=== PATIENT | female | born 1990 | race African-American/Black ===

== ENCOUNTER 2017-11-06 19:22 | Emergency (ER) | payer MEDICAID ==
[~2017-11-06] VITALS: Ht 149.9 cm; Wt 59.5 kg
[2017-11-07 00:01] LABS: HEMATOCRIT. 38.8 % (36.0-48.0); HEMOGLOBIN. 12.6 g/dL (12.0-16.0); LYMPHOCYTES % 30.7 % (20.0-50.0); MEAN CORPUSCULAR VOLUME 89.2 fL (81.0-99.0); MEAN PLATELET VOLUME 7.8 fl (7.4-10.4); MONOCYTES % 6.4 % (2.0-8.0); NEUTROPHILS % 60.9 % (40.0-76.0); PLATELET 253 x1000/uL (130-400); RED BLOOD CELL COUNT 4.35 mill/uL (4.2-5.4); RED CELL DISTRIBUTION WIDTH 13.2 % (11.6-14.6)
[2017-11-07] MEDS ORDERED: SODIUM CHLORIDE 0.9% 1,000 ML IV ONE (00:25)
[2017-11-07] MEDS ORDERED: KETOROLAC 30MG/ML VIAL IV STA (00:25)
[2017-11-07] MEDS ORDERED: ONDANSETRON HCL 4MG/2ML VIAL IV STA (00:25)
[2017-11-07 01:20] LABS: CHLORIDE 106 mEq/L (98-107)
[2017-11-07 01:29] LABS: B-HCG QUANTITATIVE < 1 mIU/mL (<3)
[2017-11-07 02:54] LABS: CLARITY URINE CLEAR (CLEAR); COLOR URINE YELLOW (YELLOW); KETONES URINE NEGATIVE (NEGATIVE); LEUKOCYTE ESTERASE URINE TRACE (NEGATIVE); NITRITE URINE NEGATIVE (NEGATIVE); OCCULT BLOOD URINE NEGATIVE (NEGATIVE); PROTEIN URINE NEGATIVE (NEGATIVE); SPECIFIC GRAVITY URINE 1.023 (1.005-1.030)
[2017-11-07 03:17] VITALS: BP 118/83
== END 2017-11-07 03:18 | disposition home or self-care (01) ==
LOC: ER 21:24
DX: N30.00 Acute cystitis without hematuria (principal); R11.0 Nausea; M79.605 Pain in left leg; M79.604 Pain in right leg; R03.0 Elevated blood-pressure reading, without diagnosis of hypertension; F17.210 Nicotine dependence, cigarettes, uncomplicated
CPT/HCPCS: 36415; 74176; 80048; 81001; 81025; 84702; 85025; 86850; 86900; 86901; 96361; 96374; 96375; 99285; J1885; J2405; J7030